=== PATIENT | male | born 2000 | race Caucasian/White ===

== ENCOUNTER 2021-08-23 13:19 | Emergency (ER) | payer SELFPAY ==
[~2021-08-23] VITALS: Ht 160 cm; Wt 55.2 kg
[2021-08-23 14:47] VITALS: BP 126/93
== END 2021-08-23 14:57 | disposition home or self-care (01) | DRG 153 ==
LOC: ED 13:19
DX: J02.9 Acute pharyngitis, unspecified (principal); Z20.822 Contact with and (suspected) exposure to COVID-19
CPT/HCPCS: J0561

== ENCOUNTER 2022-10-10 22:45 | Emergency (ER) | payer OTHER ==
[~2022-10-10] VITALS: Ht 160 cm; Wt 70.0 kg
[2022-10-10 22:57] VITALS: BP 115/77
[2022-10-10 23:01] VITALS: BP 130/86
[2022-10-10] MEDS ORDERED: AMOX/K CLAV875 M1 PO (23:04)
[2022-10-10 23:15] VITALS: BP 116/79
== END 2022-10-11 00:08 | disposition home or self-care (01) ==
LOC: ED 22:45
DX: S80.872A Other superficial bite, left lower leg, initial encounter (principal); W54.0XXA Bitten by dog, initial encounter

== ENCOUNTER 2022-10-15 10:52 | Emergency (ER) | payer OTHER ==
[~2022-10-15] VITALS: Ht 160 cm; Wt 62.1 kg
[~2022-10-15 10:52] MED LIST: AMOX/K CLAV875 M1 PO
[2022-10-15 10:57] VITALS: BP 129/101
[2022-10-15 11:01] VITALS: BP 143/116
[2022-10-15 11:45] VITALS: BP 143/116
== END 2022-10-15 12:21 | disposition home or self-care (01) ==
LOC: ED 10:52
DX: S81.852D Open bite, left lower leg, subsequent encounter (principal); W54.0XXD Bitten by dog, subsequent encounter

== ENCOUNTER 2022-10-18 07:37 | Emergency (ER) | payer OTHER ==
[~2022-10-18] VITALS: Ht 160 cm; Wt 60.8 kg
[2022-10-18 08:33] VITALS: BP 126/79
== END 2022-10-18 08:20 | disposition home or self-care (01) ==
LOC: ED 07:37
DX: Z23 Encounter for immunization (principal); T14.8XXD Other injury of unspecified body region, subsequent encounter; W54.0XXD Bitten by dog, subsequent encounter

== ENCOUNTER 2022-10-25 12:44 | Emergency (ER) | payer OTHER ==
[~2022-10-25] VITALS: Ht 165.1 cm; Wt 61.8 kg
[2022-10-25 12:55] VITALS: BP 145/76
[2022-10-25 13:01] VITALS: BP 117/79
[2022-10-25 13:15] VITALS: BP 133/89
[2022-10-25 13:44] VITALS: BP 133/89
== END 2022-10-25 13:49 | disposition home or self-care (01) | DRG 951 ==
LOC: ED 12:44
PROC: 3E0234Z Introduction of Serum, Toxoid and Vaccine into Muscle, Percutaneous Approach (ICD-10-PCS; principal; 2022-10-25)
DX: Z23 Encounter for immunization (principal); S81.852D Open bite, left lower leg, subsequent encounter; W54.0XXD Bitten by dog, subsequent encounter

== ENCOUNTER 2022-10-31 08:48 | Emergency (ER) | payer OTHER ==
[~2022-10-31] VITALS: Ht 165.1 cm; Wt 61.6 kg
[2022-10-31 08:53] VITALS: BP 121/76
[2022-10-31 10:31] VITALS: BP 110/77
[2022-10-31 10:34] VITALS: BP 110/77
== END 2022-10-31 10:34 | disposition home or self-care (01) | DRG 951 ==
LOC: ED 08:48
PROC: 3E0234Z Introduction of Serum, Toxoid and Vaccine into Muscle, Percutaneous Approach (ICD-10-PCS; principal; 2022-10-31)
DX: Z23 Encounter for immunization (principal); S81.852D Open bite, left lower leg, subsequent encounter; W54.0XXD Bitten by dog, subsequent encounter

== ENCOUNTER 2022-11-14 11:02 | Emergency (ER) | payer OTHER ==
[~2022-11-14] VITALS: Ht 165.1 cm; Wt 62.2 kg
[2022-11-14 11:14] VITALS: BP 102/70
[2022-11-14 12:51] VITALS: BP 102/70
== END 2022-11-14 12:52 | disposition home or self-care (01) ==
LOC: ED 11:02
DX: T14.8XXD Other injury of unspecified body region, subsequent encounter (principal); W54.0XXD Bitten by dog, subsequent encounter